=== PATIENT | male | born 1995 | race African-American/Black ===

== ENCOUNTER 2017-09-02 18:30 | Emergency (ER) | payer SELFPAY ==
[~2017-09-02] VITALS: Ht 180.3 cm; Wt 100.0 kg
[~2017-09-02 18:30] MED LIST: IBUP800T23 PO; METH500T3 PO
[2017-09-02 18:37] VITALS: BP 127/80; PULSE 60; RESP 18; TEMP 98.6; O2SAT 99
--- NOTE | 2017-09-02 21:40 | PD ---
HPI Chief Complaint: Back/ Neck Pain or Injury Time Seen by Provider: 21:29 Travel History International Travel<30 days: No Contact w/Intl Traveler<30days: No Traveled to known affect area: No History of Present Illness HPI 22-year-old male here for evaluation of lower back pain. The pain started about an hour prior to coming to the emergency department while carrying his son upstairs. States that the pain is mainly over his right lower back and radiates down the posterior aspect of his right thigh. Pain is moderate to severe, worse with movements, slightly improved with rest. He denies urinary or bowel incontinence or retention. No direct trauma to the spine. No saddle anesthesia. No history of IV drug use. PFSH Past Medical History Asthma: Yes Respiratory: Yes (asthma) Immunizations Current: Yes Social History Alcohol Use: No Tobacco Use: No Substance Use: Yes (MARIJUANA OCCASIONALLY) Allergies-Medications (Allergen,Severity, Reaction): Coded Allergies: iodine (Unverified Allergy, Severe, Anaphylaxis, 06/05/17) potassium iodide (Unverified Allergy, Severe, Anaphylaxis, 06/05/17) povidone-iodine (Unverified Allergy, Severe, Anaphylaxis, 06/05/17) shellfish derived (Unverified Allergy, Severe, Anaphylaxis, 06/05/17) sodium iodide (Unverified Allergy, Severe, Anaphylaxis, 06/05/17) sodium iodide (Unverified Allergy, Severe, Anaphylaxis, 06/05/17) Reported Meds & Prescriptions Reported Meds & Active Scripts Active Robaxin (Methocarbamol) 500 Mg Tab 500 Mg PO QID PRN Ibuprofen 800 Mg Tab 800 Mg PO Q6H PRN Review of Systems Except as stated in HPI: all other systems reviewed are Neg Physical Exam Narrative GENERAL: Well-developed, well-nourished, comfortable, no apparent distress. SKIN: Focused skin assessment warm/dry. No rash. HEAD: Atraumatic. Normocephalic. EYES: Pupils equal and round. No scleral icterus. No injection or drainage. ENT: Mucous membranes pink and moist. NECK: Trachea midline. No JVD. CARDIOVASCULAR: Regular rate and rhythm. No murmur appreciated. RESPIRATORY: No accessory muscle use. Clear to auscultation. Breath sounds equal bilaterally. GASTROINTESTINAL: Abdomen soft, non-tender, nondistended. Hepatic and splenic margins not palpable. MUSCULOSKELETAL: No obvious deformities. No clubbing. No cyanosis. No edema. Mild midline lumbar spine tenderness with right paraspinal tenderness without step-off. No midline thoracic spine step-off or tenderness. Normal range of flexion and extension in bilateral lower extremities with normal muscle strength in bilateral lower extremities. No CVA tenderness. NEUROLOGICAL: Awake and alert. No obvious cranial nerve deficits. Motor grossly within normal limits. Normal speech. Great toe extension present bilaterally. No saddle anesthesia. Normal motor/sensory to bilateral lower extremities. PSYCHIATRIC: Appropriate mood and affect; insight and judgment normal. Data Data Last Documented VS Vital Signs Date Time Temp Pulse Resp B/P (MAP) Pulse Ox O2 Delivery O2 Flow Rate FiO2 09/02/17 18:37 98.6 60 18 127/80 (96) 99 Orders Orders Spine, Lumbar Comp W/Obliq (09/02/17 ) Pelvis, Ap Only (Routine) (09/02/17 ) Ketorolac Inj (Toradol Inj) (09/02/17 21:45) Prednisone (Deltasone) (09/02/17 21:45) Cyclobenzaprine (Flexeril) (09/02/17 21:45) MDM Medical Decision Making Medical Screen Exam Complete: Yes Emergency Medical Condition: Yes Differential Diagnosis Lumbosacral strain, vertebral injury, herniated disc, sciatica, spinal stenosis/ cord compression unlikely Narrative Course Vital signs show heart rate 60, blood pressure 127/80, pulse ox 99% on room air , oral temp of 98.6F. X-ray lumbar spine: No lumbar spine abnormality is identified. Pelvis x-ray: Normal exam of the pelvis. Patient and the patient's significant other were made aware of all findings. He is not displaying any red flags for low back pain. No physical exam findings concerning for spinal cord compression. He likely has lumbosacral strain. He was given IM Toradol, oral prednisone, and oral Flexeril, and will be discharged home with a prescription for prednisone, Flexeril, and naproxen. PMD follow-up this week. He was informed on when to return to the emergency department. He verbalizes understanding and agreement with plan. Diagnosis Primary Impression: Lumbosacral strain Qualified Codes: S39.012A - Strain of muscle, fascia and tendon of lower back , initial encounter Referrals: [facility] 3 days Primary Care Physician 3 days Additional Instructions: Follow-up with a primary care physician this week. Return to the emergency department for worsening symptoms or any other concerns. Scripts Cyclobenzaprine (Flexeril) 10 Mg Tab 10 MG PO TID for Muscle Spasm, #12 TAB 0 Refills Prov: Vaughn Cuadra MD 09/02/17 Naproxen (Naproxen) 500 Mg Tab 500 MG PO BID for 10 Days, #20 TAB 0 Refills Prov: Vaughn Cuadra MD 09/02/17 Prednisone (Prednisone) 50 Mg Tab 50 MG PO DAILY for 5 Days, #5 TAB 0 Refills Prov: Vaughn Cuadra MD 09/02/17 Disposition: 01 DISCHARGE HOME Condition: Stable Vaughn Cuadra MD Sep 02, 2017 21:40
[2017-09-02] MEDS ORDERED: KETOROLAC TROMETHAMINE 60 MG/2 ML (IM) VIAL IM ONE (21:45)
[2017-09-02] MEDS ORDERED: predniSONE 50 MG TAB PO ONE (21:45)
[2017-09-02] MEDS ORDERED: CYCLOBENZAPRINE HCL 10 MG TAB PO ONE (21:45)
--- NOTE | 2017-09-02 22:03 | RADRPT ---
EXAM DATE/TIME: 09/02/2017 21:45 [facility] COMPARISON: No previous studies available for comparison. 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 SURGICAL HISTORY : None. ENCOUNTER: Initial ACUITY: 1 day PAIN SCORE: 8/10 LOCATION: Lumbar spine FINDINGS: 5 views of the lumbar spine demonstrate five [id number] lumbar vertebral bodies. No fracture or compression deformity is present. There is no anterolisthesis or retrolisthesis. No significant arthr opathy is present. The visualized paraspinous soft tissues and pelvic bones demonstrate no acute abnormality. CONCLUSION: No lumbar spine abnormality is identified. Porfirio Dee MD on September 02, 2017 at 22:01 Board Certified Radiologist. This report was verified electronically.
--- NOTE | 2017-09-02 22:12 | RADRPT ---
EXAM DATE/TIME: 09/02/2017 21:44 [facility] COMPARISON: CT ABDOMEN & PELVIS W CONTRAST, July 18, 2015, 3:29. INDICATIONS : Right side pelvis pain, bent over to pick child up and back pain began MEDICAL HISTORY : None. SURGICAL HISTORY : None. ENCOUNTER: Initial ACUITY: 1 day PAIN SCORE: 8/10 LOCATION: Right Pelvis FINDINGS: Single AP view of the pelvis demonstrates no fracture or dislocation. Mineralization is within normal limits. There is no significant arthropathy. No soft tissue abnormality or radiopaque foreign body i s identified. CONCLUSION: Normal examination of the pelvis. Porfirio Dee MD on September 02, 2017 at 22:09 Board Certified Radiologist. This report was verified electronically.
[2017-09-02] MEDS ORDERED: CYCL10TA PO (22:37)
[2017-09-02] MEDS ORDERED: PRED50 PO (22:37)
[2017-09-02] MEDS ORDERED: NAPR500T2 PO (22:37)
== END 2017-09-02 23:11 | disposition home or self-care (01) ==
LOC: NEPD 18:30
DX: S39.012A Strain of muscle, fascia and tendon of lower back, initial encounter (principal); X50.9XXA Other and unspecified overexertion or strenuous movements or postures, initial encounter; Y93.F2 Activity, caregiving, lifting
CPT/HCPCS: 72110; 72170; 96372; 99284; J1885; J7512

== ENCOUNTER 2017-11-06 03:01 | Emergency (ER) | payer SELFPAY ==
[~2017-11-06] VITALS: Ht 180.3 cm; Wt 100.0 kg
[~2017-11-06 03:01] MED LIST changes: +CYCL10TA PO; +NAPR500T2 PO; +PRED50 PO
[2017-11-06 03:04] VITALS: BP 158/86; PULSE 95; RESP 18; TEMP 98.4; O2SAT 99
[2017-11-06] MEDS ORDERED: OXYMETAZOLINE HCL 0.05% 15 ML NASAL SPRAY NASAL ONE (03:30)
[2017-11-06] MEDS ORDERED: VENTAER INH (03:54)
[2017-11-06] MEDS ORDERED: MEDR4PAK PO (03:54)
--- NOTE | 2017-11-06 03:54 | PD ---
HPI . Respiratory distress Chief Complaint: Respiratory Distress Time Seen by Provider: 03:06 Travel History International Travel<30 days: No Contact w/Intl Traveler<30days: No Traveled to known affect area: No History of Present Illness HPI 22-year-old male history of asthma presents via EMS secondary to having shortness of breath this evening. En route patient received sign Medrol 125 mg IV and albuterol nebulizer treatments 2. Patient's or shortness of breath greatly improved, patient states they still cannot breathe through his nose which was his primary complaint. Patient denies any fevers chills sweats, denies chest pain, denies cough, sputum production, or hemoptysis. Denies any body aches or chills. PFSH Past Medical History Narrative Medical Past medical history reviewed Asthma: Yes Respiratory: Yes (asthma) Immunizations Current: Yes Social History Alcohol Use: No Tobacco Use: Yes Substance Use: Yes (MARIJUANA OCCASIONALLY) Allergies-Medications (Allergen,Severity, Reaction): Coded Allergies: iodine (Unverified Allergy, Severe, Anaphylaxis, 11/06/17) potassium iodide (Unverified Allergy, Severe, Anaphylaxis, 11/06/17) povidone-iodine (Unverified Allergy, Severe, Anaphylaxis, 11/06/17) shellfish derived (Unverified Allergy, Severe, Anaphylaxis, 11/06/17) sodium iodide (Unverified Allergy, Severe, Anaphylaxis, 11/06/17) sodium iodide (Unverified Allergy, Severe, Anaphylaxis, 11/06/17) Reported Meds & Prescriptions Reported Meds & Active Scripts Active Methocarbamol 500 Mg Tab 500 Mg PO QID PRN Narrative Medication Allergies and medications reviewed Review of Systems Except as stated in HPI: all other systems reviewed are Neg General / Constitutional: No: Fever Eyes: No: Visual changes HENT: Positive: Congestion, No: Headaches, Lightheadedness, Sore Throat, Rhinitis, Rhinorrhea, Nosebleed, Neck Stiffness, Neck Pain, Earache Cardiovascular: No: Chest Pain or Discomfort Respiratory: Positive: Shortness of Breath, Wheezing, No: Cough, Sneezing, Orthopnea, Hemoptysis, Stridor, Night Sweats, Pleuritic Pain Gastrointestinal: No: Abdominal Pain Genitourinary: No: Dysuria Musculoskeletal: No: Pain Skin: No Rash Neurologic: No: Weakness Psychiatric: No: Depression Endocrine: No: Polydipsia Hematologic/Lymphatic: No: Easy Bruising Physical Exam Narrative GENERAL: Awake and alert oriented 3 no acute distress SKIN: Warm and dry. Color is normal diaphoresis cyanosis or pallor HEAD: Atraumatic. Normocephalic. EYES: Pupils equal and round. No scleral icterus. No injection or drainage. ENT: No nasal bleeding or discharge. Mucous membranes pink and moist. TMs clear 2. Significant nasal congestion, patient unable to move air through bilateral nares left worse than right NECK: Trachea midline. No JVD. Supple full range of motion CARDIOVASCULAR: Regular rate and rhythm. S1-S2 no murmurs or gallops RESPIRATORY: No accessory muscle use. Clear to auscultation. Breath sounds equal bilaterally. GASTROINTESTINAL: Abdomen soft, non-tender, nondistended. Hepatic and splenic margins not palpable. MUSCULOSKELETAL: Extremities without clubbing, cyanosis, or edema. No obvious deformities. NEUROLOGICAL: Awake and alert. No obvious cranial nerve deficits. Motor grossly within normal limits. Five out of 5 muscle strength in the arms and legs. Normal speech. PSYCHIATRIC: Appropriate mood and affect; insight and judgment normal. Data Data Last Documented VS Vital Signs Date Time Temp Pulse Resp B/P (MAP) Pulse Ox O2 Delivery O2 Flow Rate FiO2 11/06/17 03:04 98.4 95 18 158/86 (110) 99 Orders Orders Oxymetazoline 0.05% Agapito [place] (Afrin 0.0 (11/06/17 03:30) [facility] Medical Decision Making Medical Screen Exam Complete: Yes Emergency Medical Condition: Yes Medical Record Reviewed: Yes Differential Diagnosis Upper respiratory infection, asthma exacerbation Narrative Course Patient has a vague improvement with EMS treatment albuterol nebulizers 2. Afrin nasal spray and saline nasal irrigation by author in ED with significant improvement patient is nasal congestion. Discharge Diagnosis Primary Impression: Asthma exacerbation Qualified Codes: J45.901 - Unspecified asthma with (acute) exacerbation Additional Impression: Nasal congestion Patient Instructions: Asthma (ED), General Instructions, Upper Respiratory Infection (ED) Additional Instructions: Afrin nasal spray as shown once daily for 3 days total as needed. Nasal saline as shown as often as needed. Albuterol inhaler 2 puffs every 4-6 hours for wheezing. Medrol Dosepak steroids for inflammation and swelling inside nasal passages and lungs. Follow-up with your doctor. Return for worsening Scripts Methylprednisolone Dosepak (Medrol Dosepak) 4 Mg Dspk 4 MG PO DIRECTED, #1 DSPK 0 Refills Per Pharmacist direction Prov: Paresh Mcgill MD 11/06/17 Albuterol 18 GM Inh (Ventolin Hfa 18 GM Inh) 90 Mcg/Act Aer 2 PUFF INH Q4-6H Y for SHORTNESS OF BREATH, #1 INHALER 0 Refills Prov: Paresh Mcgill MD 11/06/17 Disposition: 01 DISCHARGE HOME Condition: Stable Paresh Mcgill MD Nov 06, 2017 03:54
[2017-11-06] MEDS ORDERED: OSEL75 PO (19:09)
== END 2017-11-06 04:58 | disposition home or self-care (01) ==
LOC: NEPE 03:01
DX: J45.901 Unspecified asthma with (acute) exacerbation (principal); R09.81 Nasal congestion; Z72.0 Tobacco use
CPT/HCPCS: 99284

== ENCOUNTER 2017-11-06 18:12 | Emergency (ER) | payer SELFPAY ==
[~2017-11-06 18:12] MED LIST changes: +MEDR4PAK PO; +VENTAER INH
[2017-11-06 18:14] VITALS: BP 170/80; PULSE 90; RESP 18; TEMP 98.7; O2SAT 100
[2017-11-06] MEDS ORDERED: OSEL75 PO (19:09)
--- NOTE | 2017-11-06 19:10 | PD ---
HPI Chief Complaint: Cold / Flu Symptoms Time Seen by Provider: 18:57 Travel History International Travel<30 days: No Contact w/Intl Traveler<30days: No Traveled to known affect area: No History of Present Illness HPI This is a 22-year-old male with history of asthma who presents emergency department for evaluation of body aching, subjective fevers, cough 1 day. His son was diagnosed with influenza A yesterday. He is also seen as a patient for asthma exacerbation yesterday. He was discharged home with a prescription of steroids and albuterol inhaler. Patient is not currently insured therefore unable to fill his albuterol inhaler. He reports mild wheezing and shortness of breath but states it is much improved from yesterday. Some symptom severity is moderate. No aggravating or alleviating factors. PFSH Past Medical History Asthma: Yes Respiratory: Yes (asthma) Immunizations Current: Yes Social History Alcohol Use: No Tobacco Use: Yes Substance Use: Yes (MARIJUANA OCCASIONALLY) Allergies-Medications (Allergen,Severity, Reaction): Coded Allergies: iodine (Unverified Allergy, Severe, Anaphylaxis, 11/06/17) potassium iodide (Unverified Allergy, Severe, Anaphylaxis, 11/06/17) povidone-iodine (Unverified Allergy, Severe, Anaphylaxis, 11/06/17) shellfish derived (Unverified Allergy, Severe, Anaphylaxis, 11/06/17) sodium iodide (Unverified Allergy, Severe, Anaphylaxis, 11/06/17) sodium iodide (Unverified Allergy, Severe, Anaphylaxis, 11/06/17) Reported Meds & Prescriptions Reported Meds & Active Scripts Active Medrol Dosepak (Methylprednisolone) 4 Mg Dspk 4 Mg PO DIRECTED Per Pharmacist direction Ventolin Hfa 18 GM Inh (Albuterol Sulfate) 90 Mcg/Act Aer 2 Puff INH Q4-6H PRN Methocarbamol 500 Mg Tab 500 Mg PO QID PRN Review of Systems Except as stated in HPI: all other systems reviewed are Neg General / Constitutional: Positive: Fever Eyes: No: Visual changes HENT: No: Headaches Cardiovascular: No: Chest Pain or Discomfort Respiratory: Positive: Cough, Wheezing Gastrointestinal: No: Abdominal Pain Genitourinary: No: Dysuria Musculoskeletal: Positive: Myalgias Skin: No Rash Physical Exam Narrative GENERAL: Alert and well-appearing 22-year-old male. No distress. SKIN: Warm and dry. HEAD: Normocephalic. EYES: No injection or drainage. NECK: Supple, trachea midline. CARDIOVASCULAR: Regular rate and rhythm RESPIRATORY: Breath sounds equal bilaterally. No accessory muscle use. Mild scattered expiratory wheezes. GASTROINTESTINAL: Abdomen soft, non-tender, nondistended. MUSCULOSKELETAL: No cyanosis, or edema. BACK: Nontender without obvious deformity. No CVA tenderness. Data Data Last Documented VS Vital Signs Date Time Temp Pulse Resp B/P (MAP) Pulse Ox O2 Delivery O2 Flow Rate FiO2 11/06/17 18:14 98.7 90 18 170/80 (110) 100 Orders Orders Influenzae A/B Antigen (11/06/17 18:23) Albuterol Hfa Inh (Proair Hfa Inh) (11/06/17 19:15) Oseltamivir (Tamiflu) (11/06/17 19:15) MDM Medical Decision Making Medical Screen Exam Complete: Yes Emergency Medical Condition: Yes Differential Diagnosis Influenza, asthma exacerbation, pneumonia Narrative Course This is a 22-year-old male with history of asthma here with flulike illness. Influenza A+. No respiratory distress. Patient had difficulty obtaining his albuterol inhaler due to insurance purposes. He does have scattered expiratory wheezes. Nontoxic appearing. Patient will be given albuterol inhaler and first dose of Tamiflu. Diagnosis Primary Impression: Influenza A Additional Impression: Asthma Qualified Codes: J45.20 - Mild intermittent asthma, uncomplicated Referrals: [facility] Additional Instructions: Tamiflu as directed. Albuterol inhaler 2 puffs every 4 hours as needed for shortness of breath and wheezing. Tylenol and ibuprofen for fever control Scripts Oseltamivir (Tamiflu) 75 Mg Cap 75 MG PO BID for Mgmt Viral Infection for 5 Days, #10 CAP 0 Refills Prov: Jerica Armas 11/06/17 Disposition: 01 DISCHARGE HOME Condition: Stable Jerica Armas Nov 06, 2017 19:10
[2017-11-06] MEDS ORDERED: OSELTAMIVIR PHOSPHATE 75 MG CAP PO ONE (19:15)
[2017-11-06] MEDS ORDERED: ALBUTEROL SULFATE 90 MCG/ACT HFA 8 GM INHALER INH ONE (19:15)
[2017-11-06] MEDS ORDERED: RESP: ALBUTEROL 2.5 MG/3 ML NEB (SCH) INH ONE (19:30)
== END 2017-11-06 19:57 | disposition home or self-care (01) ==
LOC: NEPK 18:12
DX: J10.1 Influenza due to other identified influenza virus with other respiratory manifestations (principal); J45.21 Mild intermittent asthma with (acute) exacerbation; Z72.0 Tobacco use
CPT/HCPCS: 87804; 94664; 99283; J7613